=== PATIENT | male | born 1950 | race Caucasian/White ===

== ENCOUNTER → 2018-01-22 | Outpatient (CLI) | payer BC, MEDICARE ==
[~2018-01-22] MED LIST: ASCO10004 PO; BENA10TA2 PO; CHOL10002 PO; DESI25TA PO; INDO50CA PO; METF500T4 PO; MULT-717 PO; OMEG-170 PO; VENL150T PO
[2018-01-22 10:09] LABS: BASOPHILS # (AUTO) 0.03 x10^3/uL (0-0.1); BASOPHILS % (AUTO) 1 % (0-1); EOSINOPHILS # (AUTO) 0.06 x10^3/uL (0-0.4); EOSINOPHILS % (AUTO) 1 % (1-7); LYMPHOCYTES # (AUTO) 1.89 x10^3/uL (1-3.4); LYMPHOCYTES % (AUTO) 38 % (22-44); MD NO; MEAN CORPUSCULAR HEMOGLOBIN 30.5 pg (27.5-34.5); MEAN CORPUSCULAR HGB CONC 33.4 g/dL (33.2-36.2); MEAN CORPUSCULAR VOLUME 91.5 fL (81-97); MEAN PLATELET VOLUME 7.7 fL (7.4-10.4); MONOCYTES # (AUTO) 0.38 x10^3/uL (0.2-0.8); MONOCYTES % (AUTO) 8 % (2-9); NEUTROPHILS # (AUTO) 2.66 x10^3/uL (1.8-6.8); NEUTROPHILS % (AUTO) 53 % (42-75); PLATELET COUNT 240 x10^3/uL (130-400); RED BLOOD COUNT 4.71 x10^6/uL (4.38-5.82)
[2018-01-22 10:21] LABS: ALBUMIN 4.1 g/dL (3.4-5.0); ANION GAP 6 mmol/L (5-15); CALCIUM 9.2 mg/dL (8.5-10.1); CHLORIDE 104 mmol/L (98-107)
[2018-01-22 10:24] LABS: ALANINE AMINOTRANSFERASE 207 U/L (12-78); ALKALINE PHOSPHATASE 138 U/L (45-117); BILIRUBIN,TOTAL 1.7 mg/dL (0.2-1.0); CREATININE 1.28 mg/dL (0.7-1.3); TOTAL PROTEIN 7.8 g/dL (6.4-8.2)
== END | disposition home or self-care (01) ==
LOC: STAR 08:57
PROVIDERS: ATTEND Surgery
DX: Z01.818 Encounter for other preprocedural examination (principal)
CPT/HCPCS: 36415; 80053; 85025; 93005

== ENCOUNTER 2018-02-11 08:23 | Inpatient (IN) | payer BC, MEDICARE ==
[~2018-02-11] VITALS: Ht 177.8 cm; Wt 110.4 kg
[~2018-02-11 08:23] MED LIST changes: +BUPIVACAINE/PF 0.5% ONE
[2018-02-11] MEDS ORDERED: LACTATED RINGERS 1,000 ML IV SCH (08:56)
[2018-02-11] MEDS ORDERED: LIDOCAINE-MPF 1%, 2ML INFIL ONE (09:00)
[2018-02-11] MEDS ORDERED: LIDOCAINE-MPF 1%, 2ML ONE (09:01)
[2018-02-11] MEDS ORDERED: FENTANYL PF 250 MCG/5ML ONE (09:17)
[2018-02-11] MEDS ORDERED: MIDAZOLAM 1 MG/ML, 2ML ONE (09:17)
[2018-02-11] MEDS ORDERED: PROPOFOL 10 MG/ML, 20ML ONE (09:18)
[2018-02-11] MEDS ORDERED: ROCURONIUM 10MG/ML,5ML ONE ×4 (09:18→13:52)
[2018-02-11] MEDS ORDERED: GLYCOPYRROLATE 0.4 MG/2 ML, 2ML ONE (09:19)
[2018-02-11] MEDS ORDERED: NEOSTIGMINE 1 MG/ML, 10ML ONE (09:19)
[2018-02-11] MEDS ORDERED: CEFAZOLIN 1,000 MG ONE ×4 (09:20→14:55)
[2018-02-11] MEDS ORDERED: WATER-INJECTION,STERILE 10 ML IV ONE ×3 (09:20→09:38)
[2018-02-11] MEDS ORDERED: ROPIvacaine/PF 0.5%, 30 ML ONE (09:37)
[2018-02-11] MEDS ORDERED: DEXTROSE 50%, 50ML SYRINGE ONE (10:53)
[2018-02-11] MEDS ORDERED: MEPERIDINE/PF 25MG/0.5ML IVPush PRN (11:00)
[2018-02-11] MEDS ORDERED: PROMETHAZINE 12.5 MG SUPP PR PRN (11:00)
[2018-02-11] MEDS ORDERED: ONDANSETRON 2MG/ML, 2ML IVPush PRN (11:00)
[2018-02-11] MEDS ORDERED: HYDROmorphone 1 MG/ML, 1ML IV PRN (11:00)
[2018-02-11] MEDS ORDERED: hydrALAzine 20 MG/ML, 1ML IV PRN (11:00)
[2018-02-11] MEDS ORDERED: PROMETHAZINE 25 MG/ML, 1ML IV PRN (11:00)
[2018-02-11] MEDS ORDERED: DEXTROSE 50%, 50ML SYRINGE IVPush ONE (11:00)
[2018-02-11] MEDS ORDERED: OXYcodone 5 MG/5 ML ORAL.SOL UDC PO PRN (11:00)
[2018-02-11] MEDS ORDERED: morphine SULFATE 10 MG/ML, 1ML IV PRN (11:00)
[2018-02-11] MEDS ORDERED: FENTANYL PF 100 MCG/2ML IV PRN (11:00)
[2018-02-11] MEDS ORDERED: LABETALOL 5MG/ML, 20ML IV PRN (11:00)
[2018-02-11] MEDS ORDERED: DIAZEPAM 5 MG/ML, 2ML IVPush PRN (11:00)
[2018-02-11] MEDS ORDERED: BUPIVACAINE/PF 0.5% INJ ONE (12:01)
[2018-02-11] MEDS ORDERED: FENTANYL PF 100 MCG/2ML ONE (16:18)
[2018-02-11] MEDS ORDERED: GLYCOPYRROLATE 0.2MG/1ML, 5ML ONE (16:44)
[2018-02-11] MEDS ORDERED: MORPHINE SULFATE 4 MG/ML, 1ML ONE (17:17)
[2018-02-11] MEDS ORDERED: ACETAMINOPHEN 650 MG/20.3 ML UDC ONE (17:17)
[2018-02-11] MEDS ORDERED: OXYcodone 5 MG/5 ML ORAL.SOL UDC ONE (17:18)
[2018-02-11] MEDS ORDERED: ONDANSETRON 2MG/ML, 2ML ONE (17:40)
[2018-02-11] MEDS ORDERED: ACETAMINOPHEN 500 MG TABLET PO ONE (18:00)
[2018-02-11 18:15] VITALS: BP 135/87
[2018-02-11] MEDS ORDERED: INSULIN ENTER ORDER(S) IF CHECKED MC PRN (18:30)
[2018-02-11] MEDS ORDERED: CALCIUM CARBONATE 500 MG TAB.CHEW PO PRN (18:30)
[2018-02-11] MEDS ORDERED: DIPHENHYDRAMINE 50 MG/ML, 1ML IVPush PRN (18:30)
[2018-02-11] MEDS ORDERED: LORazepam 2 MG/ML, 1ML IVPush PRN (18:30)
[2018-02-11] MEDS ORDERED: ONDANSETRON 2MG/ML, 2ML IV PRN (18:30)
[2018-02-11] MEDS ORDERED: DEXAMETHASONE 4 MG/ML, 1ML IVPush PRN (18:30)
[2018-02-11] MEDS ORDERED: OXYcodone IR 5MG TABLET PO PRN (18:30)
[2018-02-11] MEDS ORDERED: DIPHENHYDRAMINE 25 MG CAPSULE PO PRN (18:30)
[2018-02-11] MEDS ORDERED: HYDROmorphone 1 MG/ML, 1ML IVPush PRN (18:30)
[2018-02-11] MEDS ORDERED: SCOPOLAMINE PATCH, 1.5MG PATCH.TD72 TD PRN (18:30)
[2018-02-11] MEDS ORDERED: HALOPERIDOL 5 MG/ML IVPush PRN (18:30)
[2018-02-11] MEDS ORDERED: INDOMETHACIN 50 MG CAPSULE PO PRN (19:00)
[2018-02-11 20:16] VITALS: BP 142/93
[2018-02-11] MEDS: INSULIN REGULAR, HUMAN 100 UNIT/ML 3ML VIAL LOW DOSE SS SQ-INSULIN SCH (21:00)
[2018-02-11] MEDS: IBUPROFEN 800 MG TABLET PO SCH (21:48)
[2018-02-11] MEDS: D5%-0.45NACL+KCL 20MEQ 1,000 ML IV SCH (22:33)
[2018-02-11] MEDS: ACETAMINOPHEN 500 MG TABLET PO SCH (22:36)
[2018-02-11] MEDS ORDERED: CEFAZOLIN PMX 2GM/50ML 50 ML IVPB ONE (23:00)
[2018-02-12 00:20] VITALS: BP 134/92
[2018-02-12 02:03] VITALS: BP 111/74
[2018-02-12 05:16] LABS: BASOPHILS # (AUTO) 0.02 x10^3/uL (0-0.1); BASOPHILS % (AUTO) 0 % (0-1); EOSINOPHILS # (AUTO) 0.03 x10^3/uL (0-0.4); EOSINOPHILS % (AUTO) 0 % (1-7); LYMPHOCYTES # (AUTO) 2.41 x10^3/uL (1-3.4); LYMPHOCYTES % (AUTO) 24 % (22-44); MD NO; MEAN CORPUSCULAR HGB CONC 34.1 g/dL (33.2-36.2); MONOCYTES # (AUTO) 1.32 x10^3/uL (0.2-0.8); MONOCYTES % (AUTO) 13 % (2-9); NEUTROPHILS # (AUTO) 6.11 x10^3/uL (1.8-6.8); NEUTROPHILS % (AUTO) 62 % (42-75); PLATELET COUNT 249 x10^3/uL (130-400); RED BLOOD COUNT 4.45 x10^6/uL (4.38-5.82); RED CELL DISTRIBUTION WIDTH 13.4 % (9.4-14.8)
[2018-02-12 05:31] LABS: CHLORIDE 103 mmol/L (98-107)
[2018-02-12 05:37] LABS: ANION GAP 6 mmol/L (5-15); CALCIUM 8.4 mg/dL (8.5-10.1); CREATININE 1.55 mg/dL (0.7-1.3)
[2018-02-12] MEDS: ACETAMINOPHEN 500 MG TABLET PO SCH ×4 (06:21→23:18)
[2018-02-12] MEDS ORDERED: SODIUM CHLORIDE 0.9% 1,000ML IVBOLUS ONE (06:30)
[2018-02-12] MEDS: INSULIN REGULAR, HUMAN 100 UNIT/ML 3ML VIAL LOW DOSE SS SQ-INSULIN SCH ×4 (07:00→20:45)
[2018-02-12 07:09] VITALS: BP 113/71
[2018-02-12] MEDS: DESIPRAMINE 50 MG PO SCH (08:00)
[2018-02-12] MEDS: IBUPROFEN 800 MG TABLET PO SCH ×3 (08:02→20:45)
[2018-02-12] MEDS: VENLAFAXINE 75 MG CAP ER PO SCH (08:04)
[2018-02-12] MEDS ORDERED: PHENYLEPHRINE 10 MG/ML ONE (11:00)
[2018-02-12 12:13] LABS: BASOPHILS # (AUTO) 0.03 x10^3/uL (0-0.1); BASOPHILS % (AUTO) 0 % (0-1); EOSINOPHILS # (AUTO) 0.04 x10^3/uL (0-0.4); EOSINOPHILS % (AUTO) 0 % (1-7); LYMPHOCYTES % (AUTO) 26 % (22-44); MD NO; MEAN CORPUSCULAR HEMOGLOBIN 30.6 pg (27.5-34.5); MEAN CORPUSCULAR HGB CONC 33.5 g/dL (33.2-36.2); MEAN CORPUSCULAR VOLUME 91.3 fL (81-97); MEAN PLATELET VOLUME 7.6 fL (7.4-10.4); MONOCYTES # (AUTO) 1.28 x10^3/uL (0.2-0.8); MONOCYTES % (AUTO) 12 % (2-9); NEUTROPHILS # (AUTO) 6.36 x10^3/uL (1.8-6.8); NEUTROPHILS % (AUTO) 61 % (42-75); PLATELET COUNT 241 x10^3/uL (130-400); RED BLOOD COUNT 4.36 x10^6/uL (4.38-5.82); RED CELL DISTRIBUTION WIDTH 12.9 % (9.4-14.8)
[2018-02-12] MEDS: D5%-0.45NACL+KCL 20MEQ 1,000 ML IV SCH (14:31)
[2018-02-12 15:31] VITALS: BP 136/76
[2018-02-12 19:43] VITALS: BP 122/85
[2018-02-13 01:28] VITALS: BP 133/82
[2018-02-13 03:00] LABS: BASOPHILS # (AUTO) 0.03 x10^3/uL (0-0.1); BASOPHILS % (AUTO) 0 % (0-1); EOSINOPHILS # (AUTO) 0.11 x10^3/uL (0-0.4); EOSINOPHILS % (AUTO) 1 % (1-7); LYMPHOCYTES # (AUTO) 2.09 x10^3/uL (1-3.4); LYMPHOCYTES % (AUTO) 24 % (22-44); MD NO; MEAN CORPUSCULAR HEMOGLOBIN 30.8 pg (27.5-34.5); MEAN CORPUSCULAR HGB CONC 33.6 g/dL (33.2-36.2); MEAN CORPUSCULAR VOLUME 91.6 fL (81-97); MEAN PLATELET VOLUME 7.8 fL (7.4-10.4); MONOCYTES # (AUTO) 1.08 x10^3/uL (0.2-0.8); MONOCYTES % (AUTO) 12 % (2-9); NEUTROPHILS % (AUTO) 62 % (42-75); PLATELET COUNT 218 x10^3/uL (130-400); RED BLOOD COUNT 4.23 x10^6/uL (4.38-5.82); RED CELL DISTRIBUTION WIDTH 13.3 % (9.4-14.8)
[2018-02-13 03:11] LABS: ALANINE AMINOTRANSFERASE 25 U/L (12-78); ALBUMIN 3.2 g/dL (3.4-5.0); ANION GAP 8 mmol/L (5-15); CALCIUM 8.3 mg/dL (8.5-10.1); CHLORIDE 106 mmol/L (98-107); CREATININE 1.12 mg/dL (0.7-1.3)
[2018-02-13 03:13] LABS: ALKALINE PHOSPHATASE 83 U/L (45-117); BILIRUBIN,TOTAL 1.6 mg/dL (0.2-1.0); TOTAL PROTEIN 6.7 g/dL (6.4-8.2)
[2018-02-13] MEDS: ACETAMINOPHEN 500 MG TABLET PO SCH ×2 (05:16→11:33)
[2018-02-13] MEDS: INSULIN REGULAR, HUMAN 100 UNIT/ML 3ML VIAL LOW DOSE SS SQ-INSULIN SCH ×2 (06:00→11:00)
[2018-02-13 07:01] VITALS: BP 138/90
[2018-02-13] MEDS: IBUPROFEN 800 MG TABLET PO SCH (07:59)
[2018-02-13] MEDS: VENLAFAXINE 75 MG CAP ER PO SCH (08:00)
[2018-02-13] MEDS: DESIPRAMINE 50 MG PO SCH (08:41)
[2018-02-13] MEDS ORDERED: TRAM50TA2 PO (09:36)
[2018-02-13] MEDS: D5%-0.45NACL+KCL 20MEQ 1,000 ML IV SCH (11:00)
== END 2018-02-13 12:25 | disposition home or self-care (01) | DRG 337 ==
LOC: OUT 08:23 → 4NOR 18:16 → OUT 18:19 → 4NOR 18:20 → DCLOUNGE 02-13 12:05
PROVIDERS: ADMIT Surgery; ATTEND Surgery
PROC: 0DNW4ZZ Release Peritoneum, Percutaneous Endoscopic Approach (ICD-10-PCS; 2018-02-11)
PROC: 8E0W4CZ Robotic Assisted Procedure of Trunk Region, Percutaneous Endoscopic Approach (ICD-10-PCS; 2018-02-11)
PROC: 0WUF4JZ Supplement Abdominal Wall with Synthetic Substitute, Percutaneous Endoscopic Approach (ICD-10-PCS; principal; 2018-02-11 10:00)
DX: K43.2 Incisional hernia without obstruction or gangrene (principal); E11.9 Type 2 diabetes mellitus without complications; E78.00 Pure hypercholesterolemia, unspecified; I10 Essential (primary) hypertension; K66.0 Peritoneal adhesions (postprocedural) (postinfection); Z90.49 Acquired absence of other specified parts of digestive tract; Z81.8 Family history of other mental and behavioral disorders; Z82.49 Family history of ischemic heart disease and other diseases of the circulatory system; Z83.6 Family history of other diseases of the respiratory system; Z83.3 Family history of diabetes mellitus; Z87.891 Personal history of nicotine dependence
CPT/HCPCS: 36415; 80048; 80053; 82962; 85025; C1729; J0690; J2250; J2405; J2704; J2710; J2795; J3010; J3490; C1781; J2270; J2370; J3480; J7030; J7120